=== PATIENT | male | born 1975 | race Caucasian/White ===

== ENCOUNTER → 2022-11-25 | Outpatient (CLI) | payer OTHER ==
[~2022-11-25] MED LIST: CARV6.252 PO; CYCL10TA9 PO; INSU100I14 SQ; INSU100I88 SQ; LISI-556 PO; LISI10TA2 PO; LISI20TA26 PO; METF-397 PO; OXYC-199 PO; OXYC1TAB12 PO; POTA99TA26 PO
== END ==
LOC: CARD 11:38
PROVIDERS: ATTEND Family Medicine
DX: I35.1 Nonrheumatic aortic (valve) insufficiency (principal); I42.9 Cardiomyopathy, unspecified
CPT/HCPCS: 93306